=== PATIENT | male | born 1960 | race Caucasian/White ===

== ENCOUNTER → 2020-03-19 | Outpatient (CLI) | payer OTHER | LOC: CAT 14:11 | PROVIDERS: ATTEND Family Medicine | DX: Z13.6 Encounter for screening for cardiovascular disorders (principal); E78.00 Pure hypercholesterolemia, unspecified; I25.10 Atherosclerotic heart disease of native coronary artery without angina pectoris ==

== ENCOUNTER → 2020-04-23 | Outpatient (CLI) | payer BC | LOC: SJCVCIMAG 08:45 | PROVIDERS: ATTEND Internal Medicine Cardiovascular Disease | DX: I08.8 Other rheumatic multiple valve diseases (principal); I48.91 Unspecified atrial fibrillation ==

== ENCOUNTER → 2021-04-13 | Outpatient (CLI) | payer OTHER | LOC: SJCVCIMAG 12:10 | PROVIDERS: ATTEND Internal Medicine Cardiovascular Disease | DX: I08.1 Rheumatic disorders of both mitral and tricuspid valves (principal); I77.819 Aortic ectasia, unspecified site; I48.91 Unspecified atrial fibrillation; G47.30 Sleep apnea, unspecified; D68.59 Other primary thrombophilia; I48.92 Unspecified atrial flutter; Z82.49 Family history of ischemic heart disease and other diseases of the circulatory system; F17.210 Nicotine dependence, cigarettes, uncomplicated; Z72.89 Other problems related to lifestyle; Z79.899 Other long term (current) drug therapy ==

== ENCOUNTER → 2021-04-23 | Outpatient (CLI) | payer BC ==
[~2021-04-23] VITALS: Ht 172.7 cm; Wt 86.4 kg
[~2021-04-23] MED LIST: TAMSULOSIN HCL0.4 MG PO; TOPROL XL50 MG PO; XARELTO20 MG PO
[2021-04-23 07:32] VITALS: BP 141/89
--- NOTE | 2021-04-23 08:36 | TEE ---
[facility] [place] [address] TRANSESOPHAGEAL ECHOCARDIOGRAM Name: ROBSON ALFORD Room #: REG [facility]#: [id number] Admission: 04/23/21 Attend Phys: Sam Gatica MD, Discharge: Date of : 62 Report #: [id number] THIS REPORT FOR: cc: Sam James MD, Patrick MD Santiago, Patrick MD FACC ~ APPROVED REPORT Study performed: 04/23/2021 07:44:55 EXAM: Transesophageal Echocardiogram Patient Location: Out-Patient Status: routine BSA: 2.00 HR: 93 bpm BP: 130/82 mmHg Rhythm: Atrial Fibrillation Other Information Study Quality: Good Indications Atrial Fibrillation Cardioversion Procedure After obtaining informed consent, patient underwent transesophageal echo in the [employer]. Type of Sedation : Conscious Sedation Sedation was administered by Maria Dolores Morrison RN. Sedation start time: 0750 Case end Time: 075 Sedation was achieved intravenously with: Versed (7.5) Fentanyl (100) Transesophageal probe was inserted and advanced into esophagus without difficulty by Sam Gatica MD FACRiley. Echo enhancement indication: R/O Septal defect. Echo enhancement agent administered: Agitated Saline The FRANCISCO JAVIER was performed without complications. Synchronized Cardioversion attempted: Successful Synchronized Cardioversion acheived with 100 Joules after 1 attempt(s). Rhythm following Synchronized Cardioversion: Normal Sinus Rhythm Throughout the procedure, the blood pressure, pulse oximetry, cardiac rhythm, and rate were monitored. [facility] [address] [address] TRANSESOPHAGEAL ECHOCARDIOGRAM Name: ROBSON ALFORD Room #: REG [facility]#: [id number] Admission: 04/23/21 Attend Phys: Sam Gatica, Discharge: Date of : 62 Report #: [id number] The patient tolerated the procedure without adverse effects. Recovery from conscious sedation was uneventful and vital signs were stable. Left Ventricle The left ventricle is normal size. There is normal left ventricular wall thickness. Left ventricular systolic function is normal. LVEF is 55%. Right Ventricle The right ventricle is normal size. The right ventricular systolic function is normal. Atria The left atrium size is normal. No thrombus is visualized in the left atrium or appendage. No shunting noted with bubble study. The right atrium size is normal. Aortic Valve The aortic valve is normal in structure. No aortic regurgitation is present. There is no aortic valvular stenosis. Mitral Valve The mitral valve is normal in structure. Trace mitral regurgitation. No evidence of mitral valve stenosis. Tricuspid Valve The tricuspid valve is normal in structure. Trace tricuspid regurgitation. Great Vessels The aortic root is normal in size. Pericardium There is no pericardial effusion. <Conclusion> Consent was obtained Timeout performed After appropriate sedation the esophageal probe was advanced without difficulty Normal left ventricular size/wall thickness Ejection fraction 60% Moderate size left atrial appendage, no evidence of mass or clot detected Normal atrial size [facility] [address] [place] [address] TRANSESOPHAGEAL ECHOCARDIOGRAM Name: ROBSON ALFORD Room #: REG [facility].#: [id number] Admission: 04/23/21 Attend Phys: Sam Gatica, Discharge: Date of : 62 Report #: [id number] Normal aortic/mitral valve insufficiency, trace mitral valve insufficiency Trace tricuspid valve insufficiency No evidence of ASD/VSD by color flow/bubble study Aorta no calcification detected Patient successfully cardioverted to sinus rhythm after 120 J/biphasic mode Patient tolerated procedure well ECG pending Toprol-XL decreased from 50 mg to 25 mg daily as outpatient. <ELECTRONICALLY SIGNED> By: Sam Gatica MD, FACC 04/23/21835 5 5 Sam Gatica MD, FACC /INF
--- NOTE | 2021-04-23 08:41 | EKG ---
[address] [address] ELECTROCARDIOGRAM REPORT Name: ROBSON ALFORD Room #: REG [facility]#: [id number] Admission: 04/23/21 Attend Phys: Sam Gatica MD, Discharge: Date of : 62 Report #: [id number] [facility] Test Date: 2021-04-23 Test Time: 08:30:14 Pat Name: ROBSON ALFORD Department: Room: Gender: Saw Feeder: RAYMUNDO : 1960 Requested By: Sam Gatica Order Number: [id number] MD: Sam Gatica Measurements Intervals [place] Rate: 77 P: 30 HI: 205 QRS: 13 QRSD: 82 T: 11 QT: 410 QTc: 465 Interpretive Statements Sinus rhythm No previous ECG available for comparison Electronically Signed On 04-23-2021 8:40:46 CDT by Sam Gatica [email or web address] <ELECTRONICALLY SIGNED> By: Sam Gatica MD, [facility] 04/23/21 0840 0830 0830 Sam Gatica MD, FACC /EPI
== END | disposition home or self-care (01) ==
LOC: CATH 06:34
PROVIDERS: ATTEND Internal Medicine
DX: I48.91 Unspecified atrial fibrillation (principal); I08.1 Rheumatic disorders of both mitral and tricuspid valves; G47.30 Sleep apnea, unspecified; Z98.890 Other specified postprocedural states; Z20.822 Contact with and (suspected) exposure to COVID-19; Z79.01 Long term (current) use of anticoagulants; Z82.49 Family history of ischemic heart disease and other diseases of the circulatory system; Z79.899 Other long term (current) drug therapy

== ENCOUNTER → 2021-06-02 | Outpatient (CLI) | payer BC ==
[~2021-06-02] MED LIST changes: +TAMBOCOR 100 M100 M1 PO
[2021-06-02 10:19] LABS: BASOPHILS 1.8 % (0.0-2.0); HEMATOCRIT 38.9 % (42.0-52.0); HEMOGLOBIN 12.5 gm/dL (14.0-18.0); LYMPHOCYTES 34.8 % (24.0-44.0); MCH 29.3 pg (26.0-34.0); MCHC 32.2 g/dL (28.0-37.0); MONOCYTES 9.8 % (1.0-8.0); PLATELET COUNT 214 thou/uL (150-400); POLYS 44.6 % (36.0-66.0); RBC 4.27 mil/uL (4.50-6.00); WBC 4.5 thou/uL (4.0-11.0)
[2021-06-02 10:57] LABS: ALBUMIN 3.7 g/dL (3.4-5.0); CALCIUM 8.8 mg/dL (8.5-10.1); POTASSIUM 4.9 mmol/L (3.5-5.1); TOTAL BILIRUBIN 0.3 mg/dL (0.2-1.0); TOTAL PROTEIN 7.1 g/dL (6.4-8.2)
== END ==
LOC: CAT 09:30
PROVIDERS: ATTEND Internal Medicine Cardiovascular Disease
DX: I48.91 Unspecified atrial fibrillation (principal); M47.814 Spondylosis without myelopathy or radiculopathy, thoracic region

== ENCOUNTER 2021-06-04 06:33 | Observation (INO) | payer BC ==
[~2021-06-04] VITALS: Ht 172.7 cm; Wt 86.2 kg
[~2021-06-04 06:33] MED LIST changes: -TAMBOCOR 100 M100 M1 PO
[2021-06-04 07:21] VITALS: BP 134/92
[2021-06-04 07:43] LABS: ABSOLUTE NEUTROPHILS 1.8 thou/uL (1.4-8.2); BASOPHILS 2.5 % (0.0-2.0); HEMATOCRIT 40.4 % (42.0-52.0); HEMOGLOBIN 13.1 gm/dL (14.0-18.0); LYMPHOCYTES 33.5 % (24.0-44.0); MCH 29.3 pg (26.0-34.0); MCHC 32.5 g/dL (28.0-37.0); MCV 90.2 fL (80.0-100.0); MONOCYTES 9.6 % (1.0-8.0); PLATELET COUNT 215 thou/uL (150-400); POLYS 45.4 % (36.0-66.0); RBC 4.48 mil/uL (4.50-6.00); RDW 16.1 % (10.5-14.5); WBC 3.9 thou/uL (4.0-11.0)
[2021-06-04 07:50] LABS: CALCIUM 8.6 mg/dL (8.5-10.1); CREATININE 1.1 mg/dL (0.7-1.3); POTASSIUM 4.3 mmol/L (3.5-5.1)
[2021-06-04 07:57] LABS: ALBUMIN 3.6 g/dL (3.4-5.0); TOTAL BILIRUBIN 0.4 mg/dL (0.2-1.0); TOTAL PROTEIN 6.9 g/dL (6.4-8.2)
[2021-06-04 08:21] LABS: APTT 27.6 Seconds (24.5-32.8); PROTIME 10.9 Seconds (10.5-12.1)
[2021-06-04] MEDS ORDERED: TAMBOCOR 100 M100 M1 PO (13:08)
[2021-06-04 19:51] VITALS: BP 143/94
[2021-06-04 23:25] VITALS: BP 119/79
--- NOTE | 2021-06-05 04:51 | NUR ---
RECEIVED THE PATIENT AT 1900H.PATIENT IS ALERT AND ORIENTED X4.WITH RIGHT GROIN SITE COVERED WITH DRESSING C/D/I.NOT IN PAIN OR DISTRESS.ALL NEEDS ATTENDED.TO CONTINOUSLY MONITOR.
[2021-06-05 05:13] VITALS: BP 135/77
[2021-06-05 08:57] VITALS: BP 130/86
[2021-06-05 09:39] VITALS: BP 130/93
--- NOTE | 2021-06-07 12:48 | P ---
[facility] [place] [address] PROCEDURE REPORT Name: ROBSON ALFORD Room #: 212-P [facility]#: [id number] Admission: 06/04/21 Attend Phys: Naif Malloy MD Discharge: 06/05/21 Date of : 62 Report #: [id number] THIS REPORT FOR: cc: Sam James MD, Patrick MD Couchonnal, Luis F. MD ~ ATRIAL FIBRILLATION ABLATION PREOPERATIVE DIAGNOSIS: Atrial fibrillation. POSTOPERATIVE DIAGNOSIS: Atrial fibrillation. PROCEDURES PERFORMED: 1. Atrial fibrillation ablation, CPT code 29461. 2. 3D mapping, CPT code 69600. 3. Intracardiac echo, CPT code 11440. 4. Focal ablation -- CPT code 66865. ANESTHESIA: The patient underwent general anesthesia with no anesthesia related complications. DESCRIPTION OF PROCEDURE: The patient had undergone informed consent. The patient was brought to the EP laboratory in a fasting and sedated state, prepped and draped in a standard fashion, obtained access to the right femoral vein x 3, placing an 8, 9 and 7-Yoruba short sheath using the modified Seldinger technique. Under fluoroscopy, decapolar catheter was placed in the coronary sinus. Of note, the decapolar would not easily stand the CS and would fall off frequently. ICE catheter was placed in the right atrium and there was evidence of 2 left and 2 right pulmonary veins. This was merged with the cardiac CT scan. The patient was systemically heparinized. Of note, the patient was in AFib at the time of the procedure. Transseptal was performed using SL1 sheath and a [place] needle and this was straightforward and then I exchanged for the cryo sheath and placed the Lasso catheter in the left atrium, creating a 3D geometry of the left atrium. Of note, he had a very posteriorly directed left inferior pulmonary vein, which made this vessel difficult to engage or to isolate. Next, I started by isolating the pulmonary veins. The left superior pulmonary vein underwent 2 initial 4-minute freezes and this did not appear to isolate the vein. The left inferior pulmonary vein underwent two 4-minute freezes and a 3-minute freeze and this did not result in isolation either. I then turned my attention to the right sided veins. The right superior pulmonary vein underwent a 4-minute freeze, isolating at 57 seconds and the right inferior pulmonary vein underwent a 3-minute freeze and then a 4-minute freeze after engage the lower branch and this resulted in isolation. Given his persistent AFib, I decided to perform posterior roof isolation. I performed 3 freezes anchored from the left superior pulmonary vein and 1 freeze anchored from the [address] [address] PROCEDURE REPORT Name: ROBSON ALFORD Levi Room #: 212-P [facility]..#: [id number] Admission: 06/04/21 Attend Phys: Naif Mallyo MD Discharge: 06/05/21 Date of : 62 Report #: [id number] right superior pulmonary vein. Each of these freezes was of 3 minutes duration and esophageal temperatures were stable throughout the procedure. Next, the patient was cardioverted and went back into AFib. A second 200 joule cardioversion was performed with adventist of sinus rhythm. The left superior and left inferior pulmonary vein remained connected as pacing showed that they were not isolated. Therefore, I went to the left superior pulmonary vein, performed a 4-minute freeze which resulted in 55 seconds and then I attempted 2 freezes of the left inferior pulmonary vein with poor temps, so I came off early. This vein was very posteriorly directed, so I clocked the balloon and this finally gave me a very good seal and then its freeze of 4 minutes' duration resulted in isolation at 85 seconds. A repeat voltage map was created and now all the veins were isolated and the posterior roof region was also isolated except for a small area of voltage along the mid roof region. As such, the procedure was concluded. Using intracardiac ultrasound, there is no pericardial effusion. The patient received systemic protamine and once the ACT was with acceptable range, catheters and sheaths were pulled and hemostasis obtained. The patient awoke neurologically and hemodynamically intact. No complications. No significant bleeding. CONCLUSIONS: 1. Successful AFib ablation with isolation of pulmonary veins. 2. Successful posterior roof isolation. <ELECTRONICALLY SIGNED> By: Naif Malloy MD 06/07/21 1248 1131 0047 Naif Malloy MD /nt
== END 2021-06-05 10:51 | disposition home or self-care (01) ==
LOC: CATH → 2N 06:55 → CATH 07:09 → 2N 06-05 10:51
PROVIDERS: ADMIT Internal Medicine Cardiovascular Disease; ATTEND Internal Medicine Cardiovascular Disease
DX: I48.91 Unspecified atrial fibrillation (principal); Z20.822 Contact with and (suspected) exposure to COVID-19; G47.33 Obstructive sleep apnea (adult) (pediatric); Z79.82 Long term (current) use of aspirin; Z79.899 Other long term (current) drug therapy
CPT/HCPCS: 62110; 62900; 65020; 65130; 70005